=== PATIENT | female | born 1995 | race Caucasian/White ===

== ENCOUNTER 2017-12-12 05:15 | Inpatient (IN) | payer OTHER ==
[~2017-12-12] VITALS: Ht 170.2 cm; Wt 59.0 kg
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
[2017-12-12] MEDS ORDERED: ONDANSETRON 4 MG/2 ML VIAL ONE (06:04)
[2017-12-12] MEDS ORDERED: ONDANSETRON IV *ER 4 MG/2 ML VIAL IV ONE (06:15)
[2017-12-12] MEDS ORDERED: IV NS 1000 ML 1,000 ML IV ONE (06:15)
--- NOTE | 2017-12-12 06:15 | NUR ---
PT TAKEN TO RADIOLOGY FOR CT SCAN BY TRANSPORTER/RN
[2017-12-12 06:19] LABS: BASOPHILS # (AUTO) 0.1 K/uL (0.0-8.0); BASOPHILS % (AUTO) 0.7 % (0.0-2.0); EOSINOPHILS # (AUTO) 0.2 K/uL (0.0-0.7); EOSINOPHILS % (AUTO) 2.8 % (0.0-7.0); HEMATOCRIT 42.4 % (31.2-41.9); HEMOGLOBIN 14.7 g/dL (10.9-14.3); LYMPHOCYTES # (AUTO) 2.1 K/uL (20.0-40.0); LYMPHOCYTES % (AUTO) 26.6 % (20.5-51.5); MEAN CORPUSCULAR HEMOGLOBIN 30.4 uug (24.7-32.8); MEAN CORPUSCULAR HGB CONC 35 g/dL (32.3-35.6); MEAN CORPUSCULAR VOLUME 87.5 fL (75.5-95.3); MONOCYTES # (AUTO) 0.6 K/uL (2.0-10.0); MONOCYTES % (AUTO) 7.1 % (0.0-11.0); NEUTROPHILS % (AUTO) 62.8 % (38.5-71.5); PLATELET COUNT (AUTO) 260 K/uL (179-408); RED BLOOD CELL COUNT(AUTO) 4.84 MIL/uL (3.63-4.92)
[2017-12-12 06:21] LABS: *BILIRUBIN,URIN NEGATIVE (NEGATIVE); *BLOOD, URINE Trace-lysed (NEGATIVE); *CLARITY,URINE CLEAR (CLEAR); *COLOR,URINE YELLOW (YELLOW); *KETONES,URINE TRACE (NEGATIVE); *PROTEIN,URINE 1+ (NEGATIVE); *URINE HCG, QUAL NEGATIVE (NEGATIVE); *UROBILINOGEN,URINE 0.2 E.U./dl (NORMAL); LEUKOCYTE ESTERASE ,URINE 1+ (NEGATIVE); NITRITE, URINE NEGATIVE (NEGATIVE); PH,URINE 6.5 (5.0-8.0); UGLUCOSE NEGATIVE (NEGATIVE)
[2017-12-12 06:29] LABS: *AMPHETAMINE, URINE NEGATIVE (NEGATIVE); *BARBITURATE, URINE NEGATIVE (NEGATIVE); *CANNABINOID, URINE NEGATIVE (NEGATIVE); *COCCAINE, URINE NEGATIVE (NEGATIVE); *OPIATE, URINE NEGATIVE (NEGATIVE); *PHENCYCLIDINE SCREEN,URINE NEGATIVE (NEGATIVE)
[2017-12-12 06:30] LABS: BACTERIA,URINE FEW /HPF (NONE SEEN); MUCUS,URINE MODERATE /LPF (0-FEW); SQUAMOUS EPITHELIAL CELL,UR MODERATE /HPF (NONE SEEN); WBC,URINE 20-50 /HPF (0-3)
[2017-12-12 06:37] LABS: BILIRUBIN,TOTAL 0.7 mg/dL (0.2-1.0); CREATININE 0.9 mg/dL (0.6-1.3); MAGNESIUM 2.1 mg/dL (1.8-2.4); POTASSIUM 3.6 mmol/L (3.5-5.1); TOTAL PROTEIN, SERUM 7.9 g/dL (6.4-8.2)
--- NOTE | 2017-12-12 06:38 | NUR ---
PT BACK FROM CT SCAN.
[2017-12-12 06:43] LABS: THYROID STIMULATING HORMONE 2.929 mIU/mL (0.358-3.740)
[2017-12-12] MEDS ORDERED: diphenhydrAMINE 50 MG/1 ML VIAL ONE (06:59)
[2017-12-12] MEDS ORDERED: METOCLOPRAMIDE HCL 10 MG/2 ML VIAL ONE (06:59)
[2017-12-12] MEDS ORDERED: diphenhydrAMINE 50 MG/1 ML VIAL IV ONE (07:00)
[2017-12-12] MEDS ORDERED: METOCLOPRAMIDE HCL 10 MG/2 ML VIAL IV ONE (07:00)
--- NOTE | 2017-12-12 07:10 | NUR ---
REPORT GIVEN TO YONG LOVE.
--- NOTE | 2017-12-12 07:10 | NUR ---
ORAL AND MAXILLOFACIAL PATHOLOGIST AT BEDSIDE FOR LAB DRAW.
[2017-12-12 07:19] LABS: ETHANOL < 3 MG/DL (0-0)
--- NOTE | 2017-12-12 08:51 | NUR ---
SBAR REPORT TO [place], BELONGINGS LIST DONE.
--- NOTE | 2017-12-12 08:59 | NUR ---
REPORT CALLED, AWAITING FOR ADMIT ROLLOVER PAPERWORK.
--- NOTE | 2017-12-12 09:22 | NUR ---
Patient received from ER. Patient appears to be ambulating with a steady gait. Patient has flushed skin on face. Vitals recorded, belongings accounted for, and history received. patient in bed, no distress at this time, bed in low position, side rails up x2.
[2017-12-12 09:40] VITALS: BP 114/72
[2017-12-12] MEDS ORDERED: Z GUARD REMEDY PASTE 57 GM TUBE TOP PRN (10:30)
[2017-12-12] MEDS ORDERED: HYDROCODONE/APAP 5-325MG TABLET PO PRN (10:30)
[2017-12-12] MEDS ORDERED: ZOLPIDEM 5 MG TABLET PO PRN (10:30)
[2017-12-12] MEDS ORDERED: MAGNESIUM HYDROXIDE 30 ML LIQUID UDC PO PRN (10:30)
[2017-12-12] MEDS ORDERED: ALBUTEROL SULFATE 1.25 MG/3 ML NEBU NEB ONE (11:15)
[2017-12-12 11:48] VITALS: BP 116/70
[2017-12-12] MEDS: CEFTRIAXONE 1 G in IV DEXTROSE 5% 50 ML IV SCH (11:59)
[2017-12-12] MEDS: NICOTINE 14 MG/24HR PATCH TD SCH (12:00)
[2017-12-12] MEDS: ACETAMINOPHEN 325 MG TABLET PO PRN ×2 (12:01→19:48)
[2017-12-12] MEDS: ONDANSETRON 4 MG/2 ML VIAL IV PRN ×2 (12:22→22:00)
[2017-12-12 15:53] VITALS: BP 110/64
[2017-12-12] MEDS: IBUPROFEN 600 MG TABLET PO PRN ×2 (16:13→23:54)
--- NOTE | 2017-12-12 18:23 | NUR ---
Patient has been cooperative with care, no distress noted at this time. Bed in low position, side rails up x2. Call light in reach. patient seen by Dr. Ellis, Echocardiogam and completed.
[2017-12-12 19:00] VITALS: BP 119/74
--- NOTE | 2017-12-12 20:00 | NUR ---
RECEIVED PT'S A/A/O X4,C/O HEADACHE 06/25 AND ASKED FOR TYLENOL;GIVEN TO PT RECORD.DISCUSSED THE PLAN OF CARE TO PT;SHE DENIED OF ANY DIZZINESS BUT STATED THAT STILL HAD BACK PAIN SOMETIMES,EDUCATED TO PT ABOUT S/S OF UTI,PT VERBALIZED UNDERSTANDING AND COOPERATIVE NOTED.PT STATED THAT "I SHOULD MORE WATER";TOLERATED WELL NOTED.KEPT COMFORT.TELEMETRY'S SR 80/MIN NOTED.
--- NOTE | 2017-12-12 21:35 | NUR ---
PT C/O DIFFICULT TO BREATH,CHECK O2 SAT,IT'S 98% W/ROOM AIR. PT STATED THAT"I USUALLY TAKE TRAZODONE 50 MG NEED IT.CAN YOU ASKED MY DOCTOR FOR ME?";CALLED AND STATED THAT IT'S GOOD TO HAVE ONLY 25 MG NEED IT;EDUCATED TO PT,SHE VERBALIZED UNDERSTANDING AND COOPERATIVE NOTED.KEPT COMFORT.CALL-LIGHT WITHIN REACH.
[2017-12-12] MEDS: TRAZODONE 100 MG TABLET PO PRN (22:00)
[2017-12-13] VITALS (7 sets, daily range): BP systolic 82–121; BP diastolic 43–81
[2017-12-13] MEDS: ACETAMINOPHEN 325 MG TABLET PO PRN ×2 (04:22→10:47)
--- NOTE | 2017-12-13 04:22 | NUR ---
PT WOKE UP AND C/O DIFFICULT TO BREATH,BILATERAL LUNGS WERE CLEAR,DRY COUGH ON/OFF,PT REQUESTED TO GET OXYGEN;EDUCATED TO PT BUT SHE STILL REQUESTED,SUPPORTED W/O2 NC 11LPM,SEMI-VILLARREAL'S POSITION.OFFERED WARM WATER,RECHECKED V/S:IT'S NORMAL RANGE.TYLENOL 650 MG PO X1 PT REQUESTED;EDUCATED TO PT;SHE VERBALIZED UNDERSTANDING AND TOLERATED WELL.TELEMETRY'S SR 88/MIN NOTED.CONTINUED MONITORING TO PT.KEPT CALL-LIGHT WITHIN REACH.
[2017-12-13] MEDS: ONDANSETRON 4 MG/2 ML VIAL IV PRN ×3 (05:37→20:53)
[2017-12-13 06:24] LABS: BASOPHILS # (AUTO) 0.1 K/uL (0.0-8.0); BASOPHILS % (AUTO) 0.8 % (0.0-2.0); EOSINOPHILS # (AUTO) 0.3 K/uL (0.0-0.7); EOSINOPHILS % (AUTO) 4.2 % (0.0-7.0); HEMATOCRIT 43.1 % (31.2-41.9); HEMOGLOBIN 14.5 g/dL (10.9-14.3); LYMPHOCYTES # (AUTO) 2.6 K/uL (20.0-40.0); LYMPHOCYTES % (AUTO) 35.2 % (20.5-51.5); MEAN CORPUSCULAR HEMOGLOBIN 29.9 uug (24.7-32.8); MEAN CORPUSCULAR HGB CONC 34 g/dL (32.3-35.6); MEAN CORPUSCULAR VOLUME 88.8 fL (75.5-95.3); MONOCYTES # (AUTO) 0.5 K/uL (2.0-10.0); MONOCYTES % (AUTO) 6.3 % (0.0-11.0); NEUTROPHILS # (AUTO) 3.9 K/uL (1.8-8.9); NEUTROPHILS % (AUTO) 53.5 % (38.5-71.5); PLATELET COUNT (AUTO) 247 K/uL (179-408); RED BLOOD CELL COUNT(AUTO) 4.85 MIL/uL (3.63-4.92); WHITE BLOOD COUNT (AUTO) 7.3 K/uL (3.8-11.8)
--- NOTE | 2017-12-13 06:30 | NUR ---
PT'S COMFORTABLE ON BED;DENIED OF PAIN OR ANY DISCOMFORT.NO DIZZINESS'S SEEN IN THE SHIFT NOTED BUT STILL C/O NAUSEA SOMETIMES.NO DISTRESS NOTED IN THE SHIFT.
[2017-12-13 06:49] LABS: CREATININE 0.9 mg/dL (0.6-1.3); PHOSPHOROUS 4.1 mg/dL (2.5-4.9); POTASSIUM 3.7 mmol/L (3.5-5.1)
[2017-12-13] MEDS: NICOTINE 14 MG/24HR PATCH TD SCH (08:39)
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
[2017-12-13] MEDS: CEFTRIAXONE 1 G in IV DEXTROSE 5% 50 ML IV SCH (12:52)
[2017-12-13] MEDS: BACITRACIN/POLYMYXIN B OINT 15 GM TUBE TOP SCH (12:52)
[2017-12-13] MEDS: IBUPROFEN 600 MG TABLET PO PRN (16:30)
--- NOTE | 2017-12-13 17:25 | NUR ---
Patient has been cooperative with care. Patient has had intermittent nausea and headache. No dizziness/lightheadedness noted. Patient showered with no difficulty.
--- NOTE | 2017-12-13 20:00 | NUR ---
Pt observed to be sitting up in bed alert and oriented x 4, in no acute distress but requesting zofran for nausea. Pt made aware of plan of care. Safe environment implemented at all times. Call light within reach.
[2017-12-13] MEDS: TRAZODONE 100 MG TABLET PO PRN (21:33)
[2017-12-14] MEDS ORDERED: QUETIAPINE FUMARATE 25 MG TABLET PO ONE
[2017-12-14 04:00] VITALS: BP_SYST 108; BP_SYST 110; BP_SYST 90; BP_DIAS 43; BP_DIAS 56; BP_DIAS 60
[2017-12-14 05:00] VITALS: BP 90/43
--- NOTE | 2017-12-14 06:30 | NUR ---
No changes throughout the night. Safe environment implemented at all times.
--- NOTE | 2017-12-14 07:25 | NUR ---
RECEIVED PATIENT ON BED ASLEEP. AAOX4 NO ACUTE DISTRESS NOTED. IV ACCESS INTACT AND PATENT. PER PUBLIC AFFAIRS SPECIALIST. PATIENT HAD DIFFICULTY SLEEPING LAST NIGHT. [id number] MG GIVEN, PATIENT SLEPT THROUGHOUT THE NIGHT. NO PAIN/DISCOMFORT NOTED AT THIS TIME. COMFORT MEASURES PROVIDED. CALL LIGHT WITHIN REACH WILL CONTINUE TO MONITOR CLOSELY.
[2017-12-14] MEDS: NICOTINE 14 MG/24HR PATCH TD SCH (08:19)
[2017-12-14] MEDS: BACITRACIN/POLYMYXIN B OINT 15 GM TUBE TOP SCH (08:23)
[2017-12-14] MEDS ORDERED: NITR100C11 PO (08:33)
[2017-12-14] MEDS: ACETAMINOPHEN 325 MG TABLET PO PRN (08:33)
--- NOTE | 2017-12-14 09:50 | NUR ---
PATIENT DISCHARGED IN STABLE CONDITION. DISCHARGE PAPERS AND INSTRUCTIONS GIVEN AND EXPLAINED TO PATIENT, TOGETHER WITH PRESCRIPTION. REFUSED MEDICATION EDUCATION FROM PHARMACIST. DISCHARGE PICTURES TAKEN AND PLACED IN CHART. IV ACCESS REMOVED, WELL TOLERATED. ID BAND DISPOSED PROPERLY. TOOK PATIENT DOWN VIA WHEELCHAIR LEFT HOSPITAL BY PRIVATE CAR ACCOMPANIED BY [facility] STAFF.
== END 2017-12-14 09:50 | disposition home or self-care (01) | DRG 690 ==
LOC: ER 05:21 → TELE 09:10 → MED 12-13 09:00
PROVIDERS: ADMIT Family Medicine; ATTEND Family Medicine
DX: N39.0 Urinary tract infection, site not specified (principal); F11.20 Opioid dependence, uncomplicated; E86.9 Volume depletion, unspecified; R55 Syncope and collapse; Z80.1 Family history of malignant neoplasm of trachea, bronchus and lung; Z80.8 Family history of malignant neoplasm of other organs or systems; F32.9 Major depressive disorder, single episode, unspecified; Z72.0 Tobacco use; R56.9 Unspecified convulsions; S90.512A Abrasion, left ankle, initial encounter; X58.XXXA Exposure to other specified factors, initial encounter; Y92.89 Other specified places as the place of occurrence of the external cause; Z86.79 Personal history of other diseases of the circulatory system
CPT/HCPCS: 36415; 70030-TC; 70450; 71045; 80307; 83605; 83735; 84100; 84443; 84703; 85025; 85610; 85651; 87040; 87086; 93005; 93307; 94664; A4663; G0480; J0696; J1200; J2405; J2765; J7030; J7040; J7060

== ENCOUNTER 2018-05-28 11:48 | Emergency (ER) | payer OTHER ==
[~2018-05-28] VITALS: Ht 167.6 cm; Wt 54.4 kg
[~2018-05-28 11:48] MED LIST: NITR100C11 PO
--- NOTE | 2018-05-28 11:55 | NUR ---
PATEINT IN ROOM 5. HER BELONGINGS AND WHITE MAKEUP CASE ARE AT THE NURSES STATION. SHE IS AWAKE, ALERT, ORIENTED X4, AMBULATES WITH STEADY GAIT. SHE IS COOPERATIVE.
[2018-05-28] MEDS ORDERED: VENL75TA4 PO (12:17)
[2018-05-28] MEDS ORDERED: GABA800T11 PO (12:17)
[2018-05-28] MEDS ORDERED: TRAZ-214 PO (12:17)
[2018-05-28] MEDS ORDERED: LURA60TA PO (12:17)
[2018-05-28 12:45] LABS: BASOPHILS # (AUTO) 0.1 K/uL (0.0-8.0); BASOPHILS % (AUTO) 0.7 % (0.0-2.0); EOSINOPHILS % (AUTO) 0.3 % (0.0-7.0); HEMATOCRIT 42.4 % (31.2-41.9); HEMOGLOBIN 14.1 g/dL (10.9-14.3); LYMPHOCYTES # (AUTO) 1.4 K/uL (20.0-40.0); LYMPHOCYTES % (AUTO) 18.9 % (20.5-51.5); MEAN CORPUSCULAR HGB CONC 33 g/dL (32.3-35.6); MEAN CORPUSCULAR VOLUME 90.1 fL (75.5-95.3); MONOCYTES # (AUTO) 0.3 K/uL (2.0-10.0); MONOCYTES % (AUTO) 4.4 % (0.0-11.0); NEUTROPHILS # (AUTO) 5.7 K/uL (1.8-8.9); NEUTROPHILS % (AUTO) 75.7 % (38.5-71.5); PLATELET COUNT (AUTO) 312 K/uL (179-408); WHITE BLOOD COUNT (AUTO) 7.6 K/uL (3.8-11.8)
[2018-05-28 12:53] LABS: CARBON DIOXIDE 28 mmol/L (21-32); CHLORIDE 106 mmol/L (98-107); CREATININE 0.8 mg/dL (0.6-1.3); GLUCOSE 96 mg/dL (74-106); POTASSIUM 4.1 mmol/L (3.5-5.1); UREA NITROGEN, BLOOD 11 mg/dL (7-18)
[2018-05-28 12:55] LABS: ETHANOL < 3 MG/DL (0-0)
[2018-05-28 12:58] LABS: ALANINE AMINOTRANSFERASE 33 U/L (14-59); ALKALINE PHOSPHATASE 63 U/L (50-136); ASPARTATE AMINOTRANSFERASE 16 U/L (15-37); BILIRUBIN,DIRECT 0.1 mg/dL (0.0-0.2); BILIRUBIN,TOTAL 0.4 mg/dL (0.2-1.0); TOTAL PROTEIN, SERUM 6.9 g/dL (6.4-8.2)
[2018-05-28 13:01] LABS: ACETAMINOPHEN < 2.0 ug/mL (10-30)
[2018-05-28 13:41] LABS: *BILIRUBIN,URIN 1+ (NEGATIVE); *BLOOD, URINE NEGATIVE (NEGATIVE); *CLARITY,URINE SLIGHTLY CLOUDY (CLEAR); *COLOR,URINE YELLOW (YELLOW); *KETONES,URINE NEGATIVE (NEGATIVE); *UROBILINOGEN,URINE 0.2 E.U./dl (NORMAL); LEUKOCYTE ESTERASE ,URINE NEGATIVE (NEGATIVE); NITRITE, URINE NEGATIVE (NEGATIVE); PH,URINE 7.5 (5.0-8.0); UGLUCOSE NEGATIVE (NEGATIVE)
[2018-05-28 13:49] LABS: BACTERIA,URINE FEW /HPF (NONE SEEN); MUCUS,URINE FEW /LPF (0-FEW); RBC,URINE NONE SEEN /HPF (0-3); SQUAMOUS EPITHELIAL CELL,UR MODERATE /HPF (NONE SEEN); URINE AMORPHOUS PHOSPHATES FEW /HPF; WBC,URINE 0-3 /HPF (0-3)
[2018-05-28 13:51] LABS: *AMPHETAMINE, URINE NEGATIVE (NEGATIVE); *BARBITURATE, URINE NEGATIVE (NEGATIVE); *CANNABINOID, URINE POSITIVE (NEGATIVE); *COCCAINE, URINE NEGATIVE (NEGATIVE); *OPIATE, URINE NEGATIVE (NEGATIVE); *PHENCYCLIDINE SCREEN,URINE NEGATIVE (NEGATIVE)
--- NOTE | 2018-05-28 14:19 | NUR ---
PATIENT ATE CHICKEN AND RICE AND DRANK APPLE JUICE AND WATER. WEN GRISSOM AT BEDSIDE SPEAKING TO PATIENT..
--- NOTE | 2018-05-28 14:53 | NUR ---
PATIENT SITTING UP EATING BAKED CHICKEN, RICE AND JUICE. PATIENT AWARE OF PENDING TRANSFER TO [facility].
--- NOTE | 2018-05-28 16:12 | NUR ---
AWAITING CALL FROM [facility]. PATIENT IS SITTING UP WATCHING TV
--- NOTE | 2018-05-28 17:19 | NUR ---
I CALLED [facility] TO CHECK ON STATUS AND THEY STATED THEY HAVE NOT ACCEPTED PATIENT YET. NATY LING, DIRECTOR [employer] AWARE. PATIENT IS AWAKE AND ALERT
--- NOTE | 2018-05-28 18:04 | NUR ---
DINNER TRAY GIVEN TO PATIENT. SHE IS AWAKE AND SPEAKING TO SOMEONE ON HER CELL PHONE. AWAITING CALL FROM [facility].
--- NOTE | 2018-05-28 19:09 | NUR ---
[facility] JUST CALLED AND ACCEPTED PATIENT. HAND OFF REPORT GIVEN TO BRUCE CORDOVA RN
--- NOTE | 2018-05-28 19:13 | NUR ---
RECEIVED SHIFT REPORT FROM YONG THORNTON.
--- NOTE | 2018-05-28 19:13 | NUR ---
PT WILL BE TRANSFERRED TO [facility]. ADMITTING DR. OPHELIA BAILEY E[facility] UNIT ROOM [id number] CALL [phone] FOR REPORT.
--- NOTE | 2018-05-28 19:34 | NUR ---
CATHERINE TRIP # [id number] ETA 30 MIN
--- NOTE | 2018-05-28 19:40 | NUR ---
GAVE TRANSFER REPORT TO [place] AT [facility].
--- NOTE | 2018-05-28 19:45 | NUR ---
PT RESTING COMFORTABLY IN BED AT THIS TIME, NO DISCOMFORT.
--- NOTE | 2018-05-28 20:09 | NUR ---
PT WILL BE TRANSFERRED TO [facility] VIA [facility] BLS UNIT 114
--- NOTE | 2018-05-28 20:13 | NUR ---
Patient Tranfers to outside Facility Physician: DR. JACINTO Location: [facility]
== END 2018-05-28 20:20 | disposition short-term general hospital (02) ==
LOC: ER 11:48
DX: F32.9 Major depressive disorder, single episode, unspecified (principal); Z88.1 Allergy status to other antibiotic agents; Z88.2 Allergy status to sulfonamides; Z88.8 Allergy status to other drugs, medicaments and biological substances; Z79.899 Other long term (current) drug therapy
CPT/HCPCS: 36415; 71045; 80048; 80076; 80307; 81001; 84702; 85025; 93005; 99285; G0480 ×2; G0481; A4663

== ENCOUNTER 2019-05-19 08:21 | Emergency (ER) | payer OTHER ==
[~2019-05-19] VITALS: Ht 170.2 cm; Wt 54.4 kg
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
[2019-05-19] MEDS ORDERED: ACETAMINOPHEN ES 500 MG TABLET ONE (08:43)
[2019-05-19] MEDS ORDERED: ONDANSETRON ODT 4 MG TAB.RAPDIS ONE (08:43)
[2019-05-19] MEDS ORDERED: ONDANSETRON ODT 4 MG TAB.RAPDIS SL ONE (08:45)
[2019-05-19] MEDS ORDERED: ACETAMINOPHEN ES 500 MG TABLET PO ONE (08:45)
[2019-05-19 08:47] LABS: *URINE HCG, QUAL NEGATIVE (NEGATIVE)
--- NOTE | 2019-05-19 09:17 | NUR ---
Patient discharged to home in stable conditon. Written and verbal after care instructions given. Patient verbalizes understanding of instructions. Patient ambulated with stable gait.
[2019-05-19 09:21] VITALS: BP 128/81
== END 2019-05-19 09:22 | disposition home or self-care (01) ==
LOC: ER 08:21
DX: S09.90XA Unspecified injury of head, initial encounter (principal); F07.81 Postconcussional syndrome; F32.9 Major depressive disorder, single episode, unspecified; Z88.1 Allergy status to other antibiotic agents; Z88.2 Allergy status to sulfonamides; Z88.8 Allergy status to other drugs, medicaments and biological substances; Z79.899 Other long term (current) drug therapy; Z87.891 Personal history of nicotine dependence; V09.9XXA Pedestrian injured in unspecified transport accident, initial encounter; Y93.89 Activity, other specified; Y92.89 Other specified places as the place of occurrence of the external cause; Y99.8 Other external cause status
CPT/HCPCS: 70450; 84703; A4663; A9150; Q0162